=== PATIENT | female | born 2000 | race African-American/Black ===

== ENCOUNTER 2021-02-16 11:03 | Emergency (ER) | payer MEDICAID ==
[~2021-02-16] VITALS: Ht 170.2 cm; Wt 59.0 kg
[2021-02-16 12:10] VITALS: BP 102/75
== END 2021-02-16 14:01 | disposition left against medical advice (07) ==
LOC: ER 11:03
DX: R07.89 Other chest pain (principal); Z53.21 Procedure and treatment not carried out due to patient leaving prior to being seen by health care provider
CPT/HCPCS: 93005